=== PATIENT | male | born 1950 | race Caucasian/White ===

== ENCOUNTER → 2020-08-06 10:40 | Outpatient (BNVA) | payer BC, SELFPAY | PROVIDERS: PCP Internal Medicine; Visit Provider Urology | DX: N40.1 Benign prostatic hyperplasia with lower urinary tract symptoms (principal); N13.8 Other obstructive and reflux uropathy; R35.1 Nocturia; R97.20 Elevated prostate specific antigen [PSA] | CPT/HCPCS: 51798 ==

== ENCOUNTER 2020-08-15 10:28 | Outpatient (REF) | payer MEDICARE, SELFPAY ==
[2020-08-15 14:45] LABS: Prostate Specific Antigen 2.22 ng/mL (<0.05-4.0)
== END 2020-08-15 10:29 | disposition home or self-care (01) ==
LOC: HO.WFDLDS 10:28
PROVIDERS: Visit Provider Urology
DX: R97.20 Elevated prostate specific antigen [PSA] (principal); Z12.5 Encounter for screening for malignant neoplasm of prostate
CPT/HCPCS: 84153

== ENCOUNTER 2021-01-29 09:34 | Outpatient (REF) | payer MEDICARE, SELFPAY ==
[2021-01-29 11:54] LABS: PSA,Total (Free>4and<10) 2.18 ng/mL (0.00-4.00)
== END 2021-01-29 09:35 | disposition home or self-care (01) ==
LOC: HO.WFDLDS 09:34
PROVIDERS: Visit Provider Urology
DX: R97.20 Elevated prostate specific antigen [PSA] (principal); N40.1 Benign prostatic hyperplasia with lower urinary tract symptoms; N13.8 Other obstructive and reflux uropathy; Z12.5 Encounter for screening for malignant neoplasm of prostate
CPT/HCPCS: 36415; 84153

== ENCOUNTER → 2021-02-05 11:08 | Outpatient (BNVA) | payer MEDICARE, SELFPAY | PROVIDERS: PCP Internal Medicine; Visit Provider Urology | DX: N40.1 Benign prostatic hyperplasia with lower urinary tract symptoms (principal); N13.8 Other obstructive and reflux uropathy; R35.1 Nocturia; R97.20 Elevated prostate specific antigen [PSA] | CPT/HCPCS: 99212 ==

== ENCOUNTER 2021-05-29 07:51 | Outpatient (REF) | payer MEDICARE, SELFPAY ==
[2021-05-29 11:45] LABS: Basophils Percent Auto 0.5 % (0-2); Eosinophils Absolute Auto 0.3 X10*3/uL (0.0-0.4); Eosinophils Percent Auto 4.8 % (0-4); Hematocrit 44.9 % (42-52); Hemoglobin 14.7 g/dl (14.0-18.0); Imm Gran Abs Auto 0.02 X10*3/uL (0.00-0.03); Imm Gran Pct Auto 0.3 % (0.0-0.4); Lymphocytes Absolute Auto 2.6 X10*3/uL (1.2-4.9); Lymphocytes Percent Auto 43.3 % (20-40); MANUAL DIFF FLAG NO; Mean Corpuscular HGB Conc 32.7 g/dl (31.0-36.0); Mean Corpuscular Hemoglobin 30.4 pg (27.0-33.0); Mean Platelet Volume 10.3 fL (9.4-12.4); Monocytes Absolute Auto 0.5 X10*3/uL (0.1-1.2); Monocytes Percent Auto 7.6 % (2-11); Neutrophils Absolute Auto 2.6 X10*3/uL (2.0-8.3); Neutrophils Percent Auto 43.5 % (45-73); Platelet Count 220 X10*3/uL (160-400); Red Blood Count 4.83 X10*6/uL (4.60-5.80)
[2021-05-29 11:45] LABS: Appearance Urine CLEAR; Color Urine YELLOW; Glucose Urine UA NEG (NEG); Leukocyte Esterase Urine NEG (NEG); Nitrite Urine NEG (NEG); Specific Gravity - Urine 1.025 (1.005-1.025); Urine Blood TRACE (NEG); Urine Ketones NEG (NEG); Urine Protein NEG (NEG-TRACE)
[2021-05-29 11:59] LABS: RBC Urine 0-2 /HPF (0); WBC Urine 0-2 /HPF (0-4)
[2021-05-29 12:05] LABS: Alanine Aminotransferase 14 U/L (0-40); Albumin Level 4.3 g/dL (3.5-5.0); Alkaline Phosphatase 47 U/L (39-117); Anion Gap 9 (12-20); Aspartate Amino Transferase 19 U/L (5-37); Bilirubin Total 0.8 mg/dL (0.0-1.0); Blood Urea Nitrogen 13 mg/dL (9-16); Calcium 9.4 mg/dL (8.4-10.2); Carbon Dioxide 29 mmol/L (22-29); Chloride 105 mmol/L (96-108); Cholesterol 190 mg/dL; Estimated Glomerular Filt Rate > 60; Glucose Fasting 92 mg/dL (60-99); HDL Cholesterol 51 mg/dL; LDL Cholesterol Calculated 125 mg/dl; Potassium 4.3 mmol/L (3.3-5.1); Sodium 139 mmol/L (135-145); Total Protein 6.9 g/dL (6.5-8.0); Triglycerides 70 mg/dL
[2021-05-29 12:18] LABS: Vitamin D 25-OH Total 85.1 ng/mL (>30)
== END 2021-05-29 07:52 | disposition home or self-care (01) ==
LOC: HO.WFDLDS 07:51
PROVIDERS: Visit Provider Internal Medicine
DX: I10 Essential (primary) hypertension (principal); I73.00 Raynaud's syndrome without gangrene; N13.8 Other obstructive and reflux uropathy; N40.1 Benign prostatic hyperplasia with lower urinary tract symptoms; E55.9 Vitamin D deficiency, unspecified
CPT/HCPCS: 36415; 80053; 80061; 81001; 82306; 85025

== ENCOUNTER → 2021-08-12 11:09 | Outpatient (BNVA) | payer MEDICARE, SELFPAY | PROVIDERS: PCP Internal Medicine; Visit Provider Urology | DX: N40.1 Benign prostatic hyperplasia with lower urinary tract symptoms (principal); N13.8 Other obstructive and reflux uropathy; R35.1 Nocturia; R97.20 Elevated prostate specific antigen [PSA] | CPT/HCPCS: 51798; 99212 ==

== ENCOUNTER 2022-06-04 08:57 | Outpatient (REF) | payer MEDICARE, SELFPAY ==
[2022-06-04 11:23] LABS: Hematocrit 44.6 % (42.0-52.0); Hemoglobin 15.1 g/dl (14.0-18.0); Mean Corpuscular HGB Conc 33.9 g/dl (31.0-36.0); Mean Corpuscular Hemoglobin 30.8 pg (27.0-33.0); Mean Corpuscular Volume 90.8 fL (80.0-98.0); Mean Platelet Volume 10.1 fL (9.4-12.4); Platelet Count 231 X10*3/uL (160-400); Red Blood Count 4.91 X10*6/uL (4.60-5.80); Red Cell Distribution Width 12.7 % (11.0-16.0); White Blood Count 5.5 X10*3/uL (4.8-10.8)
[2022-06-04 11:58] LABS: Vitamin D 25-OH Total 80.7 ng/mL (>30)
[2022-06-04 11:59] LABS: Alanine Aminotransferase 24 U/L (0-40); Albumin Level 4.5 g/dL (3.5-5.0); Alkaline Phosphatase 48 U/L (39-117); Anion Gap 14 (12-20); Aspartate Amino Transferase 26 U/L (5-37); Bilirubin Total 0.8 mg/dL (0.0-1.0); Blood Urea Nitrogen 14 mg/dL (9-16); Calcium 9.6 mg/dL (8.4-10.2); Carbon Dioxide 27 mmol/L (22-29); Chloride 104 mmol/L (96-108); Cholesterol 192 mg/dL; Estimated Glomerular Filt Rate > 60; Glucose Fasting 98 mg/dL (60-99); HDL Cholesterol 51 mg/dL; LDL Cholesterol Calculated 123 mg/dl; Potassium 4.6 mmol/L (3.3-5.1); Sodium 140 mmol/L (135-145); Total Protein 7.4 g/dL (6.5-8.0); Triglycerides 90 mg/dL
[2022-06-04 12:30] LABS: Folate 11.5 ng/mL (> or = 4.0); Vitamin B12 638 pg/mL (200-900)
== END 2022-06-04 08:58 | disposition home or self-care (01) ==
LOC: HO.WFDLDS 08:57
PROVIDERS: Visit Provider Internal Medicine
DX: I10 Essential (primary) hypertension (principal); N13.8 Other obstructive and reflux uropathy; N40.1 Benign prostatic hyperplasia with lower urinary tract symptoms; E55.9 Vitamin D deficiency, unspecified
CPT/HCPCS: 36415; 80053; 80061; 82306; 82607; 82746; 85027

== ENCOUNTER 2022-07-31 10:21 | Outpatient (REF) | payer MEDICARE, SELFPAY ==
[2022-07-31 14:22] LABS: Prostate Specific Antigen 1.89 ng/mL (<0.05-4.0)
== END 2022-07-31 10:22 | disposition home or self-care (01) ==
LOC: HO.WFDLDS 10:21
PROVIDERS: Visit Provider Urology
DX: Z12.5 Encounter for screening for malignant neoplasm of prostate (principal); N13.8 Other obstructive and reflux uropathy; N40.1 Benign prostatic hyperplasia with lower urinary tract symptoms
CPT/HCPCS: 36415; 84153

== ENCOUNTER 2022-08-12 11:28 | Outpatient (REF) | payer MEDICARE, SELFPAY ==
[2022-08-12 16:45] LABS: Urine Cytology See Pathology rpt
== END 2022-08-12 11:29 | disposition home or self-care (01) ==
LOC: HO.LAB 11:28
PROVIDERS: PCP Internal Medicine; Visit Provider Urology
DX: R31.29 Other microscopic hematuria (principal); N40.1 Benign prostatic hyperplasia with lower urinary tract symptoms; N13.8 Other obstructive and reflux uropathy
CPT/HCPCS: 51798; 88112; 99212

== ENCOUNTER 2023-06-10 11:29 | Outpatient (AMB) | payer MEDICARE, SELFPAY ==
--- NOTE | 2023-06-10 11:43 | MHC.PC.OV ---
Vital Signs 06/10/23 11:47 Height 5 ft 10 in Weight 196 lb BMI 28.1 BP 124/74 Blood Pressure Location Lt brachial Position Sitting Pulse 60 Pulse Source Pulse Oximeter Pulse Oximetry (%) 99 Oxygen Delivery Method Room Air Intake Visit Reasons: PE/HTN Intake Note: Pt is here today for PE. Allergies bee pollen [BEE STINGS] Allergy (Intermediate, Verified 06/10/23 11:49) LIP/MOUTH TINGLING nifedipine [NIFEDIPINE] Allergy (Intermediate, Verified 06/10/23 11:49) FLUSHING-FULL BODY, immediate red ears and hands, swelling hornet venom Allergy (Unknown, Verified 06/10/23 11:49) slight lips and tounge reaction Medication List - Last Reconciled 06/10/23 by Genesis Hunt MD ascorbate calcium (vitamin C) PO aspirin 81 mg PO DAILY cholecalciferol (vitamin D3) (Vitamin D3) 2,000 units PO DAILY epinephrine (EpiPen 2-Jaycob) 0.3 mg (0.3 mL) IM Q4H PRN finasteride 5 mg PO DAILY 90 days lactobacillus combination no.8 (Adult Probiotic) PO lisinopril 10 mg PO DAILY metoprolol tartrate 25 mg PO BID omeprazole 20 mg PO DAILY vitamin B complex (B Complex-Vitamin B12 tablet) 1 tab PO DAILY Tobacco use date assessed: 06/10/23 Fall risk assessment: No Falls in past year Last assessed Fall Risk: 06/10/23 Dental Screening Dental Screen Date: 06/10/23 Did you have a dental visit in the last 12 months?: Yes Did you have a dental problem in the last 6 months where you did not have access to dental care?: No Was dental information given to patient?: Patient has dentist HPI PE/HTN HPI Details Pt presents for PE. PFSH Medical History Benign prostatic hyperplasia with lower urinary tract symptoms Vitamin D deficiency Squamous cell carcinoma of skin of [place] region Sjogren's syndrome Blue toe syndrome Mixed connective tissue disease Raynaud disease Lyme disease Microscopic hematuria HTN (hypertension) Surgical History History of esophagogastroduodenoscopy (EGD) H/O colonoscopy No pertinent past surgical history Family History Father HTN (hypertension) Mother HTN (hypertension) Colon cancer Sister Non-Hodgkin lymphoma Social History Housing: House Alcohol intake: current Alcohol intake frequency: a few times a week Patient Tobacco Use Status: Never used Tobacco e-Cigarette/Vaping Use: Never Used Current occupational status: retired Cognitive needs: No Hearing needs: No Vision needs: Yes Questionnaire PHQ-9 Over the last 2 weeks, how often have you been bothered by any of the following problems? 1. Little interest or pleasure in doing things: not at all 2. Feeling down, depressed, or hopeless: not at all 3. Trouble falling or staying asleep, or sleeping too much: not at all 4. Feeling tired or having little energy: not at all 5. Poor appetite or overeating: not at all 6. Feeling bad about yourself - or that you are a failure or have let yourself or your family down: not at all 7. Trouble concentrating on things, such as reading the newspaper or watching television: not at all 8. Moving or speaking so slowly that other people could have noticed. Or the opposite - being so fidgety or restless that you have been moving around a lot more than usual: not at all 9. Thoughts that you would be better off or of hurting yourself in some way: not at all Total score: 0 Depression Screening Interpretation: Negative Source: Developed by Drs. Nhan Acharya, Susy Smith, Fer Rosario and colleagues, with an educational kevin from [employer]. Thrive Questionnaire Date Thrive assessed: 06/10/23 I am a: Patient What is your living situation today?: I have a steady place to live Within the past 12 months, did the food you bought not last and you didn't have the money to get more?: Never true Within the past 12 months, did you worry whether your food would run out before you got money to buy more?: Never true Do you have trouble paying for medicines?: No Do you have trouble getting transportation to medical appointments?: No Do you have trouble paying your heating and electricity bill?: No Do you have trouble taking care of your child, family member or friend?: No Do you have trouble with day-to-day activities such as bathing, preparing meals, shopping, managing finances, etc.?: No Are you currently unemployed and looking for a job?: No Are you interested in more education?: No Please select the resources that you would like help with: None Currently or been in a relationship where the following occur: no concerns reported AUDIT C Alcohol Use Questionnaire (AUDIT-C) 1. How often do you have a drink containing alcohol?: 2-3 times a week 2. How many drinks containing alcohol do you have on a typical day when you are drinking?: 1 or 2 3. How often do you have six or more drinks on one occasion?: Never Total Score: 3 HEATH-7 AMB Questionnaire HEATH-7 Date EHATH - 7 assessed: 06/10/23 Feeling nervous, anxious, or on edge: 0 = Not at all Not being able to stop or control worryin = Not at all Worrying too much about different things: 0 = Not at all Trouble relaxin = Not at all Being so restless that it is hard to sit still: 0 = Not at all Becoming easily annoyed or irritable: 0 = Not at all Feeling afraid as if something awful might happen: 0 = Not at all Total HEATH-7 score (0-4 normal; 5-9 mild; 10-14 moderate; 15-21 severe): 0 Source: Developed by Drs. Nhan Acharya, Susy Smith, Fer Rosario and colleagues, with an educational kevin from [employer]. Review of Systems Const All systems reviewed & are unremarkable except as noted in HPI and below Reports no additional complaints Eyes Reports no additional complaints ENT Reports no additional complaints Card Reports no additional complaints Resp Reports no additional complaints GI Reports no additional complaints Reports no additional complaints Musc Reports no additional complaints Skin/Breast Reports system reviewed and no additional complaints, except as documented Physical exam (Primary Care) Vital Signs: Last Vital Signs Pulse 60 06/10/23 11:47 BP 124/74 06/10/23 11:47 Pulse Ox 99 06/10/23 11:47 Oxygen Delivery Method Room Air 06/10/23 11:47 BMI result Body Mass Index 28.1 Tobacco/Smoking Status: Tobacco use Status Tobacco use date assessed 06/10/23 06/10/23 11:53 Patient Tobacco Use Status Never used Tobacco 06/10/23 11:53 e-Cigarette/Vaping Use Never Used 06/10/23 11:43 PHQ-9: PHQ-9 Score PHQ-9: Total score 0 06/10/23 11:54 Depression Screening Interpretation: Negative Thrive Assessment: Date of Thrive Assessment Date Thrive assessed 06/10/23 06/10/23 11:54 Currently or been in a relationship where the following occur: no concerns reported Const General: no acute distress HENMT Head: Yes normal to inspection Ears: hearing grossly normal bilaterally General nose exam: Normal external nose present Face and sinus: Yes normal facial exam Mouth: Normal oral and palatal mucosa present Throat: Yes posterior oropharynx normal Neck Neck: Yes no lymphadenopathy and Yes supple Resp Effort & Inspection: normal respiratory effort Auscultation: clear to auscultation bilaterally Cardio Rhythm: regular rhythm Heart sounds: S1 normal heart sound present and S2 normal heart sound present GI Inspection: Yes normal to inspection Palpation (GI): Soft to palpation Percussion: Yes normal to percussion Auscultation: normal bowel sounds Assessment and Plan Assessment & Plan (1) HTN (hypertension): Code(s): I10 - Essential (primary) hypertension Plan: Continue current medications (2) GERD (gastroesophageal reflux disease): Code(s): K21.9 - Gastro-esophageal reflux disease without esophagitis Plan: Continue omeprazole (3) BPH w urinary obs/LUTS: Code(s): N40.1 - Benign prostatic hyperplasia with lower urinary tract symptoms; N13.8 - Other obstructive and reflux uropathy Plan: Continue finasteride follow-up with urology next month (4) Annual physical exam: Code(s): Z00.00 - Encounter for general adult medical examination without abnormal findings Plan: Well-balanced diet and regular physical activity discussed with the patient. Orders: Orders Lipid Panel Today I10 - Essential (primary) hypertension, K21.9 - Gastro-esophageal reflux disease without esophagitis, N13.8 - Other obstructive and reflux uropathy, N40.1 - Benign prostatic hyperplasia with lower urinary tract symptoms, Z00.00 - Encounter for general adult medical examination without abnormal findings UA w Microscopic Today I10 - Essential (primary) hypertension, K21.9 - Gastro-esophageal reflux disease without esophagitis, N13.8 - Other obstructive and reflux uropathy, N40.1 - Benign prostatic hyperplasia with lower urinary tract symptoms, Z00.00 - Encounter for general adult medical examination without abnormal findings Complete Blood Count Auto Diff 365 Days E55.9 - Vitamin D deficiency, unspecified, I10 - Essential (primary) hypertension, R97.20 - Elevated prostate specific antigen [PSA], Z00.00 - Encounter for general adult medical examination without abnormal findings Lipid Panel 365 Days E55.9 - Vitamin D deficiency, unspecified, I10 - Essential (primary) hypertension, R97.20 - Elevated prostate specific antigen [PSA], Z00.00 - Encounter for general adult medical examination without abnormal findings Comprehensive [place]. Panel Fast Today I10 - Essential (primary) hypertension, K21.9 - Gastro-esophageal reflux disease without esophagitis, N13.8 - Other obstructive and reflux uropathy, N40.1 - Benign prostatic hyperplasia with lower urinary tract symptoms, Z00.00 - Encounter for general adult medical examination without abnormal findings Complete Blood Count Auto Diff Today I10 - Essential (primary) hypertension, K21.9 - Gastro-esophageal reflux disease without esophagitis, N13.8 - Other obstructive and reflux uropathy, N40.1 - Benign prostatic hyperplasia with lower urinary tract symptoms, Z00.00 - Encounter for general adult medical examination without abnormal findings PSA,Total (Free>4and<10) Today I10 - Essential (primary) hypertension, K21.9 - Gastro-esophageal reflux disease without esophagitis, N13.8 - Other obstructive and reflux uropathy, N40.1 - Benign prostatic hyperplasia with lower urinary tract symptoms, Z00.00 - Encounter for general adult medical examination without abnormal findings Comprehensive [place]. Panel Fast 365 Days E55.9 - Vitamin D deficiency, unspecified, I10 - Essential (primary) hypertension, R97.20 - Elevated prostate specific antigen [PSA], Z00.00 - Encounter for general adult medical examination without abnormal findings Coding Level of Care Code Est Pt Prev Care >65y(92156) Diagnoses HTN (hypertension) I10 GERD (gastroesophageal reflux disease) K21.9 BPH w urinary obs/LUTS N40.1; N13.8 Annual physical exam Z00.00
[2023-06-10 11:47] VITALS: BP 124/74; PULSE 60; O2SAT 99; BMI 28.1
== END 2023-06-10 12:36 | disposition home or self-care (01) ==
PROVIDERS: Visit Provider Internal Medicine
DX: Z00.00 Encounter for general adult medical examination without abnormal findings (principal); I10 Essential (primary) hypertension; K21.9 Gastro-esophageal reflux disease without esophagitis; N40.1 Benign prostatic hyperplasia with lower urinary tract symptoms; N13.8 Other obstructive and reflux uropathy
CPT/HCPCS: 99397

== ENCOUNTER 2023-08-03 08:34 | Outpatient (REF) | payer MEDICARE, SELFPAY ==
[2023-08-03 11:13] LABS: MANUAL DIFF FLAG NO
[2023-08-03 11:18] LABS: Basophils Percent Auto 0.6 % (0-2); Eosinophils Absolute Auto 0.3 X10*3/uL (0.0-0.4); Eosinophils Percent Auto 5.2 % (0-4); Hematocrit 45.2 % (42.0-52.0); Imm Gran Abs Auto 0.01 X10*3/uL (0.00-0.03); Imm Gran Pct Auto 0.2 % (0.0-0.4); Lymphocytes Absolute Auto 2.4 X10*3/uL (1.2-4.9); Mean Corpuscular HGB Conc 33.2 g/dl (31.0-36.0); Mean Corpuscular Hemoglobin 30.9 pg (27.0-33.0); Mean Corpuscular Volume 93.2 fL (80.0-98.0); Mean Platelet Volume 10.5 fL (9.4-12.4); Monocytes Absolute Auto 0.4 X10*3/uL (0.1-1.2); Platelet Count 204 X10*3/uL (160-400); Red Blood Count 4.85 X10*6/uL (4.60-5.80); Red Cell Distribution Width 12.1 % (11.0-16.0)
[2023-08-03 11:32] LABS: Appearance Urine Clear; Color Urine Yellow; Glucose Urine UA Negative (Negative); Leukocyte Esterase Urine Negative (Negative); Nitrite Urine Negative (Negative); PH 5.5 (5.0-9.0); UMIC TRIGGER UA YES; Urine Blood Trace (Negative); Urine Ketones Negative (Negative); Urine Protein Negative (Neg-Trace)
[2023-08-03 11:35] LABS: Bacteria Urine None Seen (None Seen); Hyaline Casts Urine 0-2 /LPF (0-2); RBC Urine 0-2 /HPF (0-2); Squamous Epithelial Cell Urine 0-2 /HPF (0-2); WBC Urine 0-5 /HPF (0-5)
[2023-08-03 11:40] LABS: Alanine Aminotransferase 20 U/L (0-40); Albumin Level 4.3 g/dL (3.5-5.0); Alkaline Phosphatase 43 U/L (39-117); Anion Gap 9 (12-20); Aspartate Amino Transferase 23 U/L (5-37); Bilirubin Total 0.7 mg/dL (0.0-1.0); Blood Urea Nitrogen 14 mg/dL (9-16); Calcium 9.7 mg/dL (8.4-10.2); Carbon Dioxide 30 mmol/L (22-29); Chloride 106 mmol/L (96-108); Cholesterol 186 mg/dL (<200); Estimated Glomerular Filt Rate > 60; Glucose Fasting 97 mg/dL (60-99); HDL Cholesterol 50 mg/dL (>40); LDL Cholesterol Calculated 120 mg/dL (<100); Potassium 4.5 mmol/L (3.3-5.1); Sodium 140 mmol/L (135-145); Total Protein 7.4 g/dL (6.5-8.0); Triglycerides 81 mg/dL (<150)
[2023-08-03 11:49] LABS: PSA,Total (Free>4and<10) 1.92 ng/mL (0.00-4.00)
== END 2023-08-03 08:35 | disposition home or self-care (01) ==
LOC: HO.WFDLDS 08:34
PROVIDERS: Urology; Visit Provider Internal Medicine
DX: Z00.00 Encounter for general adult medical examination without abnormal findings (principal); K21.9 Gastro-esophageal reflux disease without esophagitis; N40.1 Benign prostatic hyperplasia with lower urinary tract symptoms; N13.8 Other obstructive and reflux uropathy; I10 Essential (primary) hypertension; Z12.5 Encounter for screening for malignant neoplasm of prostate
CPT/HCPCS: 36415; 80053; 80061; 81001; 84153; 85025

== ENCOUNTER 2023-08-10 11:29 | Outpatient (AMB) | payer MEDICARE, SELFPAY ==
--- NOTE | 2023-08-10 11:37 | MHC.OFFVIS ---
Intake Intake Visit Reasons: 1Y PSA(set) Intake Note: Patient is Present for Follow Up PSA Urology Medication: Finasteride, Antibiotic Allergies: None Blood Thinners: Aspirin PVR: 0 Allergies bee pollen [BEE STINGS] Allergy (Intermediate, Verified 08/10/23 11:40) LIP/MOUTH TINGLING nifedipine [NIFEDIPINE] Allergy (Intermediate, Verified 08/10/23 11:40) FLUSHING-FULL BODY, immediate red ears and hands, swelling hornet venom Allergy (Unknown, Verified 08/10/23 11:40) slight lips and tounge reaction Medication List - Last Reconciled 08/10/23 by Floyd Duncan MD ascorbate calcium (vitamin C) PO aspirin 81 mg PO DAILY cholecalciferol (vitamin D3) (Vitamin D3) 2,000 units PO DAILY epinephrine (EpiPen 2-Jaycob) 0.3 mg (0.3 mL) IM Q4H PRN finasteride 5 mg PO DAILY 90 days lactobacillus combination no.8 (Adult Probiotic) PO lisinopril 10 mg PO DAILY metoprolol tartrate 25 mg PO BID omeprazole 20 mg PO DAILY vitamin B complex (B Complex-Vitamin B12 tablet) 1 tab PO DAILY HPI HPI Comments History of Present Illness Details Xavi is a pleasant male. He is a patient of Dr. Hunt. He is seen for the following urologic issues - lower urinary tract symptoms Continue stable urinary performance with finasteride Taking finasteride 5 times a week Discussed his diagnosis of Raynaud's Does notice nocturia years reduced when takes ibuprofen Previous discussion regarding prostate procedures such as GreenLight laser and UroLift Lower Urinary Tract Symptoms: Continuing with use of finasteride Current visit is for further symptom evaluation of, lower urinary tract symptoms, predominate obstructive symptoms. Current treatment includes observation. Prostate Symptom Score Moderate (9-19), Bother 3. Symptoms include incomplete emptying, weak stream, nocturia (>2), and are progressing. PSA - 01/31 2.2, 08/04 1.9, 08/05 1.9 Prior Prostate Score unknown. Testing at next visit will include bladder scan [facility] Medical History Benign prostatic hyperplasia with lower urinary tract symptoms Vitamin D deficiency Squamous cell carcinoma of skin of [place] region Sjogren's syndrome Blue toe syndrome Mixed connective tissue disease Raynaud disease Lyme disease Microscopic hematuria HTN (hypertension) Surgical History History of esophagogastroduodenoscopy (EGD) H/O colonoscopy No pertinent past surgical history Family History Father HTN (hypertension) Mother HTN (hypertension) Colon cancer Sister Non-Hodgkin lymphoma Housing: House Alcohol intake: current Alcohol intake frequency: a few times a week Patient Tobacco Use Status: Never used Tobacco e-Cigarette/Vaping Use: Never Used Current occupational status: retired Cognitive needs: No Hearing needs: No Vision needs: Yes Review of Systems Const Denies chills and Denies fever(s) Card Reports no additional complaints and Denies syncope Resp Denies cough GI Denies abdominal pain and Denies heartburn Reports as per HPI and Denies change in libido Neuro Denies syncope Psych Denies change in libido Endo Denies change in libido Physical Exam Const General: cooperative, healthy appearing, comfortable and no acute distress Orientation/consciousness: patient oriented x3 HEENT Face and sinus: Yes normal facial exam Mouth: moist mucous membranes Neck Neck: Yes normal visual inspection, Yes full ROM and Yes trachea midline Chest Chest palpation & inspection: normal inspection of the chest Resp Effort & Inspection: normal respiratory effort, able to speak in complete sentences and no respiratory distress GI Inspection: Yes normal to inspection Back/Spine/Pelvis Cervical Spine: normal cervical lordosis Thoracic/Lumbar Spine: thoracic and lumbar spine normal to inspection Skin General skin exam: no rashes or lesions noted Neuro General: patient oriented x3, gait normal, tone normal and moves all extremities Extrem General: Yes normal to inspection and Yes capillary refill normal Office Procedures Post Void Residual Post Residual Void Post Void Residual (PVR): 0 97621-[id number] Void Residual by ultrasound Results AMB Urinalysis, Automated UA Leukoctes 0 Sergey/uL Last Edit by GENNA Wheat on 08/10/23 11:45 UA Nitrite Negative Last Edit by GENNA Wheat on 08/10/23 11:45 UA Urobilinogen 0.2 mg/dL Last Edit by GENNA Wheat on 08/10/23 11:45 UA Protein 0 mg/dL Last Edit by Princess Anderson, RMA on 08/10/23 11:45 UA pH 5.5 Last Edit by Princess Anderson, RMA on 08/10/23 11:45 UA Blood 10 Vitaliy/uL Last Edit by Princess Anderson, RMA on 08/10/23 11:45 UA Specific [place] 1.015 Last Edit by Princess Anderson, KOSTASA on 08/10/23 11:45 UA Ketone Negative Last Edit by Princess Anderson, RMA on 08/10/23 11:45 UA Bilirubin 0 mg/dL Last Edit by Princess Anderson, KOSTASA on 08/10/23 11:45 UA Glucose 0 mg/dL Last Edit by Princess Anderson, RMA on 08/10/23 11:45 Assessment & Plan Assessment & Plan (1) Elevated PSA: Comment: f/u with urology Code(s): R97.20 - Elevated prostate specific antigen [PSA] (2) BPH w urinary obs/LUTS: Code(s): N40.1 - Benign prostatic hyperplasia with lower urinary tract symptoms; N13.8 - Other obstructive and reflux uropathy Plan Twelve month follow-up PSA Orders: Orders Prostate Specific Antigen 364 Days N13.8 - Other obstructive and reflux uropathy, N40.1 - Benign prostatic hyperplasia with lower urinary tract symptoms AMB Post Void Residual by ultrasound Today N13.8 - Other obstructive and reflux uropathy, N40.1 - Benign prostatic hyperplasia with lower urinary tract symptoms AMB Urinalysis Automated Today Z13.9 - Encounter for screening, unspecified Patient Instructions: Imaging studies, laboratory and physical exam results were discussed and reviewed in detail. No major barriers to patient understanding were identified. An opportunity to ask questions regarding the treatment plan was provided. All questions were answered. The patient expressed understanding and agreement with the above treatment plan. The patient is aware they should contact our office by phone for worsening of their current condition or the appearance of new urologic symptoms. Compliance is encouraged with any medications and followup testing that is ordered. It is a privilege to participate in the urologic care of your patient. If you have any questions or concerns regarding treatment for the above conditions, or other urologic issues, please do not hesitate to contact me. The office telephone contact is [phone]. This note is constructed using voice recognition software. While every effort has been made to ensure accuracy slubber runner errors may have been included. Yours sincerely, Dr Floyd Duncan MD, [facility] - Urology Providers of Expert, Compassionate Care for the Genitourinary System Coding Level of Care Code Est Pt Level 4 (79762) Diagnoses Elevated PSA R97.20 BPH w urinary obs/LUTS N40.1; N13.8 CPT Codes Post Residual Void - PVR CPT Code: 07121-Ncnf Void Residual by ultrasound ([id number])
== END 2023-08-10 12:00 | disposition home or self-care (01) ==
PROVIDERS: Visit Provider Urology
DX: R97.20 Elevated prostate specific antigen [PSA] (principal); N40.1 Benign prostatic hyperplasia with lower urinary tract symptoms; N13.8 Other obstructive and reflux uropathy; Z13.9 Encounter for screening, unspecified
CPT/HCPCS: 99213

== ENCOUNTER → 2023-08-10 11:29 | Outpatient (BNVA) | payer MEDICARE, SELFPAY | PROVIDERS: Visit Provider Urology | DX: N40.1 Benign prostatic hyperplasia with lower urinary tract symptoms (principal); N13.8 Other obstructive and reflux uropathy; R97.20 Elevated prostate specific antigen [PSA] | CPT/HCPCS: 51798; 81003; 99212 ==

== ENCOUNTER → 2024-01-03 11:36 | Outpatient (AMB) | payer MEDICARE, SELFPAY ==
--- NOTE | 2024-01-03 12:01 | MHC.OFFWIV ---
Intake Vital Signs 01/03/24 12:04 Height 5 ft 10 in Weight 204 lb BMI 29.3 BP 124/80 Blood Pressure Location Lt brachial Position Sitting Respiration 16 Pulse 58 Pulse Source Pulse Oximeter Temp 97.7 F Temp Source Oral Pulse Oximetry (%) 98 Oxygen Delivery Method Room Air Intake Visit Reasons: Lump in groin Intake Note: Lump in groin. Noticed lump a couple months ago, increasing in size the past week. 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 Allergies bee pollen [BEE STINGS] Allergy (Intermediate, Verified 01/03/24 12:17) LIP/MOUTH TINGLING nifedipine [NIFEDIPINE] Allergy (Intermediate, Verified 01/03/24 12:17) FLUSHING-FULL BODY, immediate red ears and hands, swelling hornet venom Allergy (Unknown, Verified 01/03/24 12:17) slight lips and tounge reaction Medication List - Last Reconciled 01/03/24 by BRITTNI Luna- ascorbate calcium (vitamin C) PO aspirin 81 mg PO DAILY cholecalciferol (vitamin D3) (Vitamin D3) 2,000 units PO DAILY epinephrine (EpiPen 2-Jaycob) 0.3 mg (0.3 mL) IM Q4H PRN finasteride 5 mg PO DAILY 90 days lactobacillus combination no.8 (Adult Probiotic) PO lisinopril 10 mg PO DAILY metoprolol tartrate 25 mg PO BID omeprazole 20 mg PO DAILY vitamin B complex (B Complex-Vitamin B12 tablet) 1 tab PO DAILY Do you need a note to return to daycare/school/sports/work: No HPI HPI Comments History of Present Illness Details Here today for a lump of scrotum, left side noticed while in the shower washing himself reports it was about the size of a grain of rice did see pcp for this - reassured has not paid any attention to this until last week while in [place], noticed a larger lump - unsure if this is the same place or not. The area is not painful After showering, it does become itchy. Denies constitutional symptoms [facility] Medical History Benign prostatic hyperplasia with lower urinary tract symptoms Vitamin D deficiency Squamous cell carcinoma of skin of religion region Sjogren's syndrome Blue toe syndrome Mixed connective tissue disease Raynaud disease Lyme disease Microscopic hematuria HTN (hypertension) Surgical History History of esophagogastroduodenoscopy (EGD) H/O colonoscopy No pertinent past surgical history Family History Father HTN (hypertension) Mother HTN (hypertension) Colon cancer Sister Non-Hodgkin lymphoma Social History Housing: House Alcohol intake: current Alcohol intake frequency: a few times a week Patient Tobacco Use Status: Never used Tobacco e-Cigarette/Vaping Use: Never Used Current occupational status: retired Cognitive needs: No Hearing needs: No Vision needs: Yes Review of Systems Const All systems reviewed & are unremarkable except as noted in HPI and below Physical Exam Vital Signs: Last Vital Signs Temp 97.7 F 01/03/24 12:04 Pulse 58 01/03/24 12:04 Resp 16 01/03/24 12:04 BP 124/80 01/03/24 12:04 Pulse Ox 98 01/03/24 12:04 Oxygen Delivery Method Room Air 01/03/24 12:04 BMI result Body Mass Index 29.3 Male genitals images: 1. 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 Testicles WNL. Overlying skin intact. Assessment & Plan Assessment & Plan (1) Scrotal mass: Comment: check US and f/u with results once available Code(s): N50.89 - Other specified disorders of the male genital organs Plan: . Plan . Orders: Orders US scrotum Today N50.89 - Other specified disorders of the male genital organs Coding Level of Care Code Est Pt Level 4 (74661) Diagnoses Scrotal mass N50.89
[2024-01-03 12:04] VITALS: BP 124/80; PULSE 58; RESP 16; TEMP 36.5; O2SAT 98; BMI 29.3
== END ==
PROVIDERS: PCP Internal Medicine; Visit Provider Nurse Practitioner Family
DX: N50.89 Other specified disorders of the male genital organs (principal)
CPT/HCPCS: 99214

== ENCOUNTER 2024-01-06 10:29 | Outpatient (REF) | payer MEDICARE, SELFPAY ==
--- NOTE | ~2024-01-06 | US_ITS ---
EXAMINATION: US SCROTUM CLINICAL INFORMATION: Left scrotal mass. COMPARISON: None available. TECHNIQUE: A sonogram of the scrotum was performed assessing menjivar-scale appearance and color Doppler flow. Spectral Doppler analysis of the arterial and venous flow were performed in the testes bilaterally. FINDINGS: RIGHT: Right testicle measures 4.5 x 1.9 x 3.6 cm, volume 15.6 mL. No focal testicular parenchymal lesions are visualized. Spectral Doppler analysis of the arterial and venous flow is normal in the right testis. Right epididymal head is normal in size. There is no right hydrocele. A small right varicocele is seen. Right epididymal Doppler flow is normal. LEFT: Left testicle measures 4.4 x 2.3 x 3.9 cm, volume 20.9 mL. No focal testicular parenchymal lesions are visualized. There is ectasia of the right rete testis. Spectral Doppler analysis of the arterial and venous flow is normal in the left testis. Left epididymal head is normal in size. An 8 mm left epidural head cyst versus spermatocele seen. There are additional 7 mm and 5 mm left epididymal tail cyst. There is a small left hydrocele. No varicocele is seen. Left epididymal Doppler flow is normal. US/US scrotum IMPRESSION: 1. A small left hydrocele is seen. 2. There are small left epididymal spermatocele/cysts, as detailed. 3. A right varicocele is seen. 4. No testicular mass or torsion is seen.
== END 2024-01-06 10:30 | disposition home or self-care (01) ==
LOC: HO.HMGCX 10:29
PROVIDERS: PCP Internal Medicine; Visit Provider Nurse Practitioner Family
DX: N50.89 Other specified disorders of the male genital organs (principal)
CPT/HCPCS: 76870

== ENCOUNTER 2024-04-11 11:56 | Outpatient (REF) | payer MEDICARE, SELFPAY ==
[2024-04-11 18:36] LABS: Prostate Specific Antigen 1.56 ng/mL (<0.05-4.0)
== END 2024-04-11 11:57 | disposition home or self-care (01) ==
LOC: HO.WFDLDS 11:56
PROVIDERS: Visit Provider Urology
DX: N40.1 Benign prostatic hyperplasia with lower urinary tract symptoms (principal); N13.8 Other obstructive and reflux uropathy; Z12.5 Encounter for screening for malignant neoplasm of prostate
CPT/HCPCS: 36415; 84153

== ENCOUNTER 2024-04-13 10:50 | Outpatient (AMB) | payer MEDICARE, SELFPAY ==
--- NOTE | 2024-04-13 11:03 | A.OFFVIS_ITS ---
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 He is a patient of Dr. Hunt. He is seen for the following urologic issues - lower urinary tract symptoms Continue stable urinary performance with finasteride Taking finasteride 5 times a week Discussed his diagnosis of Raynaud's Does notice nocturia years reduced when takes ibuprofen Previous discussion regarding prostate procedures such as GreenLight laser and UroLift Lower Urinary Tract Symptoms: Continuing with use of finasteride Current visit is for further symptom evaluation of, lower urinary tract symptoms, predominate obstructive symptoms. Current treatment includes observation. Prostate Symptom Score Moderate (9-19), Bother 3. Symptoms include incomplete emptying, weak stream, nocturia (>2), and are progressing. PSA - 01/31 2.2, 08/04 1.9, 08/05 1.9 Prior Prostate Score unknown. Testing at next visit will include bladder scan [facility] Medical History (Updated 06/13/24 @ 12:46 by Genesis Hunt MD) Benign prostatic hyperplasia with lower urinary tract symptoms Vitamin D deficiency Squamous cell carcinoma of skin of [place] region Sjogren's syndrome Blue toe syndrome Mixed connective tissue disease Raynaud disease Lyme disease Microscopic hematuria HTN (hypertension) Surgical History (Updated 06/13/24 @ 12:46 by Genesis Hunt MD) History of esophagogastroduodenoscopy (EGD) H/O colonoscopy No pertinent past surgical history Family History Father HTN (hypertension) Mother HTN (hypertension) Colon cancer Sister Non-Hodgkin lymphoma Social History Housing: House Alcohol intake: current Alcohol intake frequency: a few times a week Patient Tobacco Use Status: Never used Tobacco e-Cigarette/Vaping Use: Never Used Current occupational status: retired Cognitive needs: No Hearing needs: No Vision needs: Yes Review of Systems Const Denies chills and Denies fever(s) Card Reports no additional complaints and Denies syncope Resp Denies cough GI Denies abdominal pain and Denies heartburn Reports as per HPI and Denies change in libido Neuro Denies syncope Psych Denies change in libido Endo Denies change in libido Physical Exam Const General: cooperative, healthy appearing, comfortable and no acute distress Orientation/consciousness: patient oriented x3 HEENT Face and sinus: Yes normal facial exam Mouth: moist mucous membranes Neck Neck: Yes normal visual inspection, Yes full ROM and Yes trachea midline Chest Chest palpation & inspection: normal inspection of the chest Resp Effort & Inspection: normal respiratory effort, able to speak in complete sentences and no respiratory distress GI Inspection: Yes normal to inspection Back/Spine/Pelvis Cervical Spine: normal cervical lordosis Thoracic/Lumbar Spine: thoracic and lumbar spine normal to inspection Skin General skin exam: no rashes or lesions noted Neuro General: patient oriented x3, gait normal, tone normal and moves all extremities Extrem General: Yes normal to inspection and Yes capillary refill normal Assessment & Plan Assessment & Plan (1) BPH w urinary obs/LUTS: Code(s): N40.1 - Benign prostatic hyperplasia with lower urinary tract symptoms; N13.8 - Other obstructive and reflux uropathy Category: Medical (2) Elevated PSA: Comment: f/u with urology Code(s): R97.20 - Elevated prostate specific antigen [PSA] Category: Medical Plan Six-month follow-up PSA tele Orders: Orders Prostate Specific Antigen 6 Months R97.20 - Elevated prostate specific antigen [PSA] Patient Instructions: Imaging studies, laboratory and physical exam results were discussed and review ed in detail. No major barriers to patient understanding were identified. An opportunity to ask questions regarding the treatment plan was provided. All questions were answered. The patient expressed understanding and agreement with the above treatment plan. The patient is aware they should contact our office by phone for worsening of their current condition or the appearance of new urologic symptoms. Compliance is encouraged with any medications and followup testing that is ordered. It is a privilege to participate in the urologic care of your patient. If you have any questions or concerns regarding treatment for the above conditions, or other urologic issues, please do not hesitate to contact me. The office telephone contact is [phone]. This note is constructed using voice recognition software. While every effort has been made to ensure accuracy nurse staff errors may have been included. Yours sincerely, Dr Floyd Duncan MD, [facility] - Urology Providers of Expert, Compassionate Care for the Genitourinary System Coding Level of Care Code Est Pt Level 3 (21560) Diagnoses BPH w urinary obs/LUTS N40.1; N13.8 Elevated PSA R97.20
== END 2024-04-13 12:10 | disposition home or self-care (01) ==
PROVIDERS: PCP Internal Medicine; Visit Provider Urology
DX: N40.1 Benign prostatic hyperplasia with lower urinary tract symptoms (principal); N13.8 Other obstructive and reflux uropathy; R97.20 Elevated prostate specific antigen [PSA]
CPT/HCPCS: 99213

== ENCOUNTER → 2024-04-13 10:50 | Outpatient (BNVA) | payer MEDICARE, SELFPAY | PROVIDERS: PCP Internal Medicine; Visit Provider Urology | DX: N40.1 Benign prostatic hyperplasia with lower urinary tract symptoms (principal); N13.8 Other obstructive and reflux uropathy; R97.20 Elevated prostate specific antigen [PSA] | CPT/HCPCS: 99212 ==

== ENCOUNTER 2024-06-09 07:30 | Outpatient (REF) | payer MEDICARE, SELFPAY ==
[2024-06-09 11:11] LABS: MANUAL DIFF FLAG NO
[2024-06-09 11:17] LABS: Basophils Percent Auto 0.6 % (0-2); Eosinophils Absolute Auto 0.3 X10*3/uL (0.0-0.4); Eosinophils Percent Auto 4.6 % (0-4); Hematocrit 43.9 % (42.0-52.0); Hemoglobin 14.7 g/dl (14.0-18.0); Imm Gran Abs Auto 0.01 X10*3/uL (0.00-0.03); Imm Gran Pct Auto 0.2 % (0.0-0.4); Lymphocytes Absolute Auto 2.5 X10*3/uL (1.2-4.9); Lymphocytes Percent Auto 46.9 % (20-40); Mean Corpuscular HGB Conc 33.5 g/dl (31.0-36.0); Mean Corpuscular Volume 92.6 fL (80.0-98.0); Mean Platelet Volume 10.2 fL (9.4-12.4); Monocytes Absolute Auto 0.5 X10*3/uL (0.1-1.2); Monocytes Percent Auto 8.7 % (2-11); Neutrophils Absolute Auto 2.1 x10*3/uL (2.0-8.3); Platelet Count 226 X10*3/uL (160-400); Red Blood Count 4.74 X10*6/uL (4.60-5.80); Red Cell Distribution Width 12.4 % (11.0-16.0); White Blood Count 5.4 X10*3/uL (4.8-10.8)
[2024-06-09 12:13] LABS: Alanine Aminotransferase 22 U/L (0-40); Albumin Level 4.2 g/dL (3.5-5.0); Alkaline Phosphatase 44 U/L (39-117); Anion Gap 11 (12-20); Aspartate Amino Transferase 24 U/L (5-37); Bilirubin Total 0.7 mg/dL (0.0-1.0); Blood Urea Nitrogen 15 mg/dL (9-16); Calcium 9.7 mg/dL (8.4-10.2); Carbon Dioxide 28 mmol/L (22-29); Chloride 106 mmol/L (96-108); Cholesterol 191 mg/dL (<200); Estimated Glomerular Filt Rate > 60; Glucose Fasting 88 mg/dL (60-99); HDL Cholesterol 47 mg/dL (>40); LDL Cholesterol Calculated 123 mg/dL (<100); Potassium 4.2 mmol/L (3.3-5.1); Sodium 141 mmol/L (135-145); Total Protein 7.2 g/dL (6.5-8.0); Triglycerides 109 mg/dL (<150)
== END 2024-06-09 07:31 | disposition home or self-care (01) ==
LOC: HO.WFDLDS 07:30
PROVIDERS: Visit Provider Internal Medicine
DX: Z00.00 Encounter for general adult medical examination without abnormal findings (principal); R97.20 Elevated prostate specific antigen [PSA]; I10 Essential (primary) hypertension; E55.9 Vitamin D deficiency, unspecified
CPT/HCPCS: 36415; 80053; 80061; 85025

== ENCOUNTER 2024-06-13 12:05 | Outpatient (AMB) | payer MEDICARE, SELFPAY ==
--- NOTE | 2024-06-13 12:06 | A.OFFPC_ITS ---
Vital Signs 06/13/24 12:07 Height 5 ft 10 in Weight 205 lb BMI 29.4 BP 130/78 Blood Pressure Location Lt brachial Position Sitting Pulse 53 Pulse Source Pulse Oximeter Pulse Oximetry (%) 98 Oxygen Delivery Method Room Air Intake Visit Reasons: Annual PE Intake Note: Pt is here today for his PE Allergies bee pollen [BEE STINGS] Allergy (Intermediate, Verified 06/13/24 12:07) LIP/MOUTH TINGLING nifedipine [NIFEDIPINE] Allergy (Intermediate, Verified 06/13/24 12:07) FLUSHING-FULL BODY, immediate red ears and hands, swelling hornet venom Allergy (Unknown, Verified 06/13/24 12:07) slight lips and tounge reaction Medication List - Last Reconciled 06/13/24 by Genesis Hunt MD ascorbate calcium (vitamin C) PO aspirin 81 mg PO DAILY cholecalciferol (vitamin D3) (Vitamin D3) 2,000 units PO DAILY epinephrine (EpiPen 2-Jaycob) 0.3 mg (0.3 mL) IM Q4H PRN finasteride 5 mg PO DAILY 90 days lactobacillus combination no.8 (Adult Probiotic) PO lisinopril 10 mg PO DAILY metoprolol tartrate 25 mg PO BID omeprazole 20 mg PO DAILY vitamin B complex (B Complex-Vitamin B12 tablet) 1 tab PO DAILY Tobacco use date assessed: 06/13/24 Fall risk assessment: No Falls in past year Last assessed Fall Risk: 06/13/24 Dental Screening Dental Screen Date: 06/13/24 Did you have a dental visit in the last 12 months?: Yes Did you have a dental problem in the last 6 months where you did not have access to dental care?: No Was dental information given to patient?: Patient has dentist HPI Annual PE HPI Details Pt presents for PE. [facility] Medical History (Updated 06/13/24 @ 12:46 by Genesis Hunt MD) Benign prostatic hyperplasia with lower urinary tract symptoms Vitamin D deficiency Squamous cell carcinoma of skin of [place] region Sjogren's syndrome Blue toe syndrome Mixed connective tissue disease Raynaud disease Lyme disease Microscopic hematuria HTN (hypertension) Surgical History (Updated 06/13/24 @ 12:46 by Genesis Hunt MD) History of esophagogastroduodenoscopy (EGD) H/O colonoscopy No pertinent past surgical history Family History Father HTN (hypertension) Mother HTN (hypertension) Colon cancer Sister Non-Hodgkin lymphoma Social History Housing: House Alcohol intake: current Alcohol intake frequency: a few times a week Patient Tobacco Use Status: Never used Tobacco e-Cigarette/Vaping Use: Never Used Current occupational status: retired Cognitive needs: No Hearing needs: No Vision needs: Yes Questionnaire PHQ-9 Over the last 2 weeks, how often have you been bothered by any of the following problems? 1. Little interest or pleasure in doing things: not at all 2. Feeling down, depressed, or hopeless: not at all 3. Trouble falling or staying asleep, or sleeping too much: not at all 4. Feeling tired or having little energy: not at all 5. Poor appetite or overeating: not at all 6. Feeling bad about yourself - or that you are a failure or have let yourself or your family down: not at all 7. Trouble concentrating on things, such as reading the newspaper or watching television: not at all 8. Moving or speaking so slowly that other people could have noticed. Or the opposite - being so fidgety or restless that you have been moving around a lot more than usual: not at all 9. Thoughts that you would be better off or of hurting yourself in some way: not at all Total score: 0 Depression Screening Interpretation: Negative Depression Screening Done: Yes 29486 - PHQ-9 Billing: Yes Source: Developed by Drs. Nhan Acharya, uSsy Smith, Fer Rosario and colleagues, with an educational kevin from [employer]. Thrive Questionnaire Date Thrive assessed: 06/13/24 I am a: Patient What is your living situation today?: I have a steady place to live Within the past 12 months, did the food you bought not last and you didn't have the money to get more?: Never true Within the past 12 months, did you worry whether your food would run out before you got money to buy more?: Never true Do you have trouble paying for medicines?: No Do you have trouble getting transportation to medical appointments?: No Do you have trouble paying your heating and electricity bill?: No Do you have trouble taking care of your child, family member or friend?: No Do you have trouble with day-to-day activities such as bathing, preparing meals, shopping, managing finances, etc.?: No Are you interested in more education?: No Please select the resources that you would like help with: None Currently or been in a relationship where the following occur: No concerns reported THRIVE Score: 0 AUDIT C Alcohol Use Questionnaire (AUDIT-C) 1. How often do you have a drink containing alcohol?: 2-4 times a month 2. How many drinks containing alcohol do you have on a typical day when you are drinking?: 1 or 2 3. How often do you have six or more drinks on one occasion?: Never Total Score: 2 HEATH-7 AMB Questionnaire HEATH-7 Date HEATH - 7 assessed: 06/13/24 Feeling nervous, anxious, or on edge: 0 = Not at all Not being able to stop or control worryin = Not at all Worrying too much about different things: 0 = Not at all Trouble relaxin = Not at all Being so restless that it is hard to sit still: 0 = Not at all Becoming easily annoyed or irritable: 0 = Not at all Feeling afraid as if something awful might happen: 0 = Not at all Total HEATH-7 score (0-4 normal; 5-9 mild; 10-14 moderate; 15-21 severe): 0 Source: Developed by Drs. Nhan Acharya, Susy Smith, Fer Rosario and colleagues, with an educational kevin from [employer]. Review of Systems Const All systems reviewed & are unremarkable except as noted in HPI and below Reports no additional complaints Eyes Reports no additional complaints ENT Reports no additional complaints Card Reports no additional complaints Resp Reports no additional complaints GI Reports no additional complaints Reports no additional complaints Physical exam (Primary Care) Vital Signs: Last Vital Signs Pulse 53 06/13/24 12:07 BP 144/84 H 06/13/24 12:07 Pulse Ox 98 06/13/24 12:07 Oxygen Delivery Method Room Air 06/13/24 12:07 BMI result Body Mass Index 29.4 Tobacco/Smoking Status: Tobacco use Status Tobacco use date assessed 06/13/24 06/13/24 12:11 Patient Tobacco Use Status Never used Tobacco 06/13/24 12:11 e-Cigarette/Vaping Use Never Used 06/13/24 12:11 PHQ-9: PHQ-9 Score PHQ-9: Total score 0 06/13/24 12:11 Depression Screening Interpretation: Negative Thrive Assessment: Date of Thrive Assessment Date Thrive assessed 06/13/24 06/13/24 12:11 Currently or been in a relationship where the following occur: No concerns reported Const General: no acute distress HENMT Head: Yes normal to inspection General nose exam: Normal external nose present Throat: Yes posterior oropharynx normal Eyes General: appearance normal, both eyes and all related structures Neck Neck: Yes no lymphadenopathy and Yes supple Resp Effort & Inspection: normal respiratory effort Auscultation: clear to auscultation bilaterally Cardio Rhythm: regular rhythm Heart sounds: S1 normal heart sound present and S2 normal heart sound present GI Inspection: Yes normal to inspection Palpation (GI): Soft to palpation Percussion: Yes normal to percussion Auscultation: normal bowel sounds Coding Level of Care Code Est Pt Prev Care >65y(22928) Diagnoses Vitamin D deficiency E55.9 HTN (hypertension) I10 Elevated PSA R97.20 S/P partial colectomy Z90.49 Assessment & Plan Assessment & Plan (1) Vitamin D deficiency: Code(s): E55.9 - Vitamin D deficiency, unspecified Category: Medical Plan: Continue vitamin-D supplement check the level (2) HTN (hypertension): Code(s): I10 - Essential (primary) hypertension Category: Medical Plan: Continue current medications (3) Elevated PSA: Comment: f/u with urology Code(s): R97.20 - Elevated prostate specific antigen [PSA] Category: Medical Plan: Continue finasteride follow-up with Urology (4) S/P partial colectomy: Comment: For recurrent diverticulitis Code(s): Z90.49 - Acquired absence of other specified parts of digestive tract Category: Surgical Plan: Patient is established with GI Orders: Orders Lipid Panel 1 Year E55.9 - Vitamin D deficiency, unspecified, I10 - Essential (primary) hypertension, Z00.00 - Encounter for general adult medical examination without abnormal findings Vitamin D 25-OH Total 1 Year E55.9 - Vitamin D deficiency, unspecified, I10 - Essential (primary) hypertension, Z00.00 - Encounter for general adult medical examination without abnormal findings Vitamin D 25-OH Total Today E55.9 - Vitamin D deficiency, unspecified Comprehensive [place]. Panel Fast 1 Year E55.9 - Vitamin D deficiency, unspecified, I10 - Essential (primary) hypertension, Z00.00 - Encounter for general adult medical examination without abnormal findings Complete Blood Count Auto Diff 1 Year E55.9 - Vitamin D deficiency, unspecified, I10 - Essential (primary) hypertension, Z00.00 - Encounter for general adult medical examination without abnormal findings
[2024-06-13 12:07] VITALS: BP 130/78; PULSE 53; O2SAT 98; BMI 29.4
== END 2024-06-13 12:47 | disposition home or self-care (01) ==
PROVIDERS: PCP Internal Medicine; Visit Provider Internal Medicine
DX: Z00.00 Encounter for general adult medical examination without abnormal findings (principal); I10 Essential (primary) hypertension; E55.9 Vitamin D deficiency, unspecified; R97.20 Elevated prostate specific antigen [PSA]; Z90.49 Acquired absence of other specified parts of digestive tract

== ENCOUNTER → 2024-06-13 12:05 | Outpatient (BNVA) | payer MEDICARE, SELFPAY | PROVIDERS: PCP Internal Medicine; Visit Provider Internal Medicine | DX: E55.9 Vitamin D deficiency, unspecified (principal); I10 Essential (primary) hypertension; R97.20 Elevated prostate specific antigen [PSA]; Z90.49 Acquired absence of other specified parts of digestive tract | CPT/HCPCS: 96127; 99397 ==

== ENCOUNTER 2024-07-27 08:25 | Outpatient (REF) | payer MEDICARE, SELFPAY ==
[2024-07-27 11:02] LABS: MANUAL DIFF FLAG NO
[2024-07-27 11:17] LABS: Basophils Percent Auto 0.5 % (0-2); Eosinophils Absolute Auto 0.4 X10*3/uL (0.0-0.4); Eosinophils Percent Auto 6.6 % (0-4); Hematocrit 43.8 % (42.0-52.0); Hemoglobin 14.5 g/dl (14.0-18.0); Imm Gran Abs Auto 0.01 X10*3/uL (0.00-0.03); Imm Gran Pct Auto 0.2 % (0.0-0.4); Lymphocytes Absolute Auto 2.3 X10*3/uL (1.2-4.9); Lymphocytes Percent Auto 40.5 % (20-40); Mean Corpuscular HGB Conc 33.1 g/dl (31.0-36.0); Mean Corpuscular Hemoglobin 30.4 pg (27.0-33.0); Mean Corpuscular Volume 91.8 fL (80.0-98.0); Mean Platelet Volume 10.1 fL (9.4-12.4); Monocytes Absolute Auto 0.5 X10*3/uL (0.1-1.2); Monocytes Percent Auto 8.5 % (2-11); Neutrophils Absolute Auto 2.5 x10*3/uL (2.0-8.3); Neutrophils Percent Auto 43.7 % (45-73); Platelet Count 218 X10*3/uL (160-400); Red Blood Count 4.77 X10*6/uL (4.60-5.80); Red Cell Distribution Width 12.2 % (11.0-16.0); White Blood Count 5.6 X10*3/uL (4.8-10.8)
[2024-07-27 11:41] LABS: Alanine Aminotransferase 20 U/L (0-40); Albumin Level 4.1 g/dL (3.5-5.0); Anion Gap 8 (12-20); Aspartate Amino Transferase 26 U/L (5-37); Bilirubin Total 0.7 mg/dL (0.0-1.0); Blood Urea Nitrogen 14 mg/dL (9-16); Calcium 8.9 mg/dL (8.4-10.2); Carbon Dioxide 30 mmol/L (22-29); Chloride 105 mmol/L (96-108); Estimated Glomerular Filt Rate > 60; Glucose Fasting 97 mg/dL (60-99); Sodium 139 mmol/L (135-145)
[2024-07-27 11:42] LABS: Alkaline Phosphatase 45 U/L (39-117); Cholesterol 185 mg/dL (<200); HDL Cholesterol 50 mg/dL (>40); LDL Cholesterol Calculated 116 mg/dL (<100); Triglycerides 98 mg/dL (<150)
[2024-07-27 11:54] LABS: Prostate Specific Antigen 1.57 ng/mL (<0.05-4.0)
[2024-07-27 12:01] LABS: Vitamin D 25-OH Total 66.4 ng/mL (>30)
== END 2024-07-27 08:26 | disposition home or self-care (01) ==
LOC: HO.WFDLDS 08:25
PROVIDERS: Referring Provider Urology; Visit Provider Internal Medicine
DX: Z00.00 Encounter for general adult medical examination without abnormal findings (principal); R97.20 Elevated prostate specific antigen [PSA]; I10 Essential (primary) hypertension; E55.9 Vitamin D deficiency, unspecified; Z12.5 Encounter for screening for malignant neoplasm of prostate
CPT/HCPCS: 36415; 80053; 80061; 82306; 84153; 85025

== ENCOUNTER 2024-08-03 10:38 | Outpatient (AMB) | payer MEDICARE, SELFPAY ==
--- NOTE | 2024-08-03 10:43 | A.OFFVIS_ITS ---
Intake Visit Reasons: 1Y PSA(set) Intake Note: Patient is Present for Follow Up PSA Urology Medication: Finasteride Antibiotic Allergies: None Blood Thinners: Aspirin LABS: 07/27/24 -PSA- 1.57 Last PVR:0ML Bottom Cager Required: No Accompanied by: Self / Same As Patient Allergies bee pollen [BEE STINGS] Allergy (Intermediate, Verified 08/03/24 10:45) LIP/MOUTH TINGLING nifedipine [NIFEDIPINE] Allergy (Intermediate, Verified 08/03/24 10:45) FLUSHING-FULL BODY, immediate red ears and hands, swelling hornet venom Allergy (Unknown, Verified 08/03/24 10:45) slight lips and tounge reaction HPI Comments Details: Xavi is a pleasant male. He is a patient of Dr. Hunt. He is seen for the following urologic issues - lower urinary tract symptoms Three-month follow-up Taking finasteride 5 times a week Previous discussion regarding prostate procedures such as GreenLight laser and UroLift PSA remains stable at 1.6 Would check PVR in 6 months given some concern regarding bladder performance Lower Urinary Tract Symptoms: Continuing with use of finasteride Current visit is for further symptom evaluation of, lower urinary tract symptoms, predominate obstructive symptoms. Current treatment includes observation. Prostate Symptom Score Moderate (9-19), Bother 3. Symptoms include incomplete emptying, weak stream, nocturia (>2), and are progressing. PSA - 01/31 2.2, 08/04 1.9, 08/05 1.9, 04/05 1.6, 08/06 1.6 Prior Prostate Score unknown. Testing at next visit will include bladder scan [facility] Medical History Benign prostatic hyperplasia with lower urinary tract symptoms Vitamin D deficiency Squamous cell carcinoma of skin of [place] region Sjogren's syndrome Blue toe syndrome Mixed connective tissue disease Raynaud disease Lyme disease Microscopic hematuria HTN (hypertension) Surgical History History of esophagogastroduodenoscopy (EGD) H/O colonoscopy No pertinent past surgical history Family History Father HTN (hypertension) Mother HTN (hypertension) Colon cancer Sister Non-Hodgkin lymphoma Social History Housing: House Alcohol intake: current Alcohol intake frequency: a few times a week Patient Tobacco Use Status: Never used Tobacco e-Cigarette/Vaping Use: Never Used Current occupational status: retired Cognitive needs: No Hearing needs: No Vision needs: Yes Review of Systems Const Denies chills and Denies fever(s) Card Reports no additional complaints and Denies syncope Resp Denies cough GI Denies abdominal pain and Denies heartburn Reports as per HPI and Denies change in libido Neuro Denies syncope Psych Denies change in libido Endo Denies change in libido Physical Exam Const General: cooperative, healthy appearing, comfortable and no acute distress Orientation/consciousness: patient oriented x3 HEENT Face and sinus: Yes normal facial exam Mouth: moist mucous membranes Neck Neck: Yes normal visual inspection, Yes full ROM and Yes trachea midline Chest Chest palpation & inspection: normal inspection of the chest Resp Effort & Inspection: normal respiratory effort, able to speak in complete sentences and no respiratory distress GI Inspection: Yes normal to inspection Back/Spine/Pelvis Cervical Spine: normal cervical lordosis Thoracic/Lumbar Spine: thoracic and lumbar spine normal to inspection Skin General skin exam: no rashes or lesions noted Neuro General: patient oriented x3, gait normal, tone normal and moves all extremities Extrem General: Yes normal to inspection and Yes capillary refill normal Assessment & Plan Assessment & Plan (1) Elevated PSA: Comment: f/u with urology Code(s): R97.20 - Elevated prostate specific antigen [PSA] Category: Medical (2) BPH w urinary obs/LUTS: Code(s): N40.1 - Benign prostatic hyperplasia with lower urinary tract symptoms; N13.8 - Other obstructive and reflux uropathy Category: Medical (3) Nocturia: Code(s): R35.1 - Nocturia Category: Medical Plan Six-month follow-up PVR Patient Instructions: Imaging studies, laboratory and physical exam results were discussed and reviewed in detail. No major barriers to patient understanding were identified. An opportunity to ask questions regarding the treatment plan was provided. All questions were answered. The patient expressed understanding and agreement with the above treatment plan. The patient is aware they should contact our office by phone for worsening of their current condition or the appearance of new urologic symptoms. Compliance is encouraged with any medications and followup testing that is ordered. It is a privilege to participate in the urologic care of your patient. If you have any questions or concerns regarding treatment for the above conditions, or other urologic issues, please do not hesitate to contact me. The office telephone contact is [phone]. This note is constructed using voice recognition software. While every effort has been made to ensure accuracy store operations associate errors may have been included. Yours sincerely, Dr Floyd Duncan MD, [facility] - Urology Providers of Expert, Compassionate Care for the Genitourinary System Coding Level of Care Code Est Pt Level 3 (87379) Diagnoses Elevated PSA R97.20 BPH w urinary obs/LUTS N40.1; N13.8 Nocturia R35.1
== END 2024-08-03 11:38 | disposition home or self-care (01) ==
PROVIDERS: PCP Internal Medicine; Visit Provider Urology
DX: R97.20 Elevated prostate specific antigen [PSA] (principal); N40.1 Benign prostatic hyperplasia with lower urinary tract symptoms; N13.8 Other obstructive and reflux uropathy; R35.1 Nocturia
CPT/HCPCS: 99213

== ENCOUNTER → 2024-08-03 10:38 | Outpatient (BNVA) | payer MEDICARE, SELFPAY | PROVIDERS: PCP Internal Medicine; Visit Provider Urology | DX: N40.1 Benign prostatic hyperplasia with lower urinary tract symptoms (principal); N13.8 Other obstructive and reflux uropathy; R35.1 Nocturia; R97.20 Elevated prostate specific antigen [PSA] | CPT/HCPCS: 99212 ==

== ENCOUNTER 2025-02-01 11:40 | Outpatient (AMB) | payer MEDICARE, SELFPAY ==
--- NOTE | 2025-02-01 11:49 | A.OFFVIS_ITS ---
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 He is a patient of Dr. Hunt. He is seen for the following urologic issues - lower urinary tract symptoms Six-month follow-up Taking finasteride 5 times a week Previous discussion regarding prostate procedures such as GreenLight laser and UroLift Continued improvement in PVR Continued bladder performance improvement Adequate stream Twelve month follow-up Lower Urinary Tract Symptoms: Continuing with use of finasteride Current visit is for further symptom evaluation of, lower urinary tract symptoms, predominate obstructive symptoms. Current treatment includes observation. Prostate Symptom Score Moderate (9-19), Bother 3. Symptoms include incomplete emptying, weak stream, nocturia (>2), and are progressing. PSA - 01/31 2.2, 08/04 1.9, 08/05 1.9, 04/05 1.6, 08/06 1.6 Prior Prostate Score unknown. 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 Sjogren's syndrome Blue toe syndrome Mixed connective tissue disease Raynaud disease Lyme disease Microscopic hematuria HTN (hypertension) Surgical History History of esophagogastroduodenoscopy (EGD) H/O colonoscopy No pertinent past surgical history Family History Father HTN (hypertension) Mother HTN (hypertension) Colon cancer Sister Non-Hodgkin lymphoma Social History (Reviewed 08/03/24 @ 10:45 by OBDULIO Wheat Housing: House Alcohol intake: current Alcohol intake frequency: a few times a week Patient Tobacco Use Status: Never used Tobacco e-Cigarette/Vaping Use: Never Used Current occupational status: retired Cognitive needs: No Hearing needs: No Vision needs: Yes Review of Systems Const Denies chills and Denies fever(s) Card Reports no additional complaints and Denies syncope Resp Denies cough GI Denies abdominal pain and Denies heartburn Reports as per HPI and Denies change in libido Neuro Denies syncope Psych Denies change in libido Endo Denies change in libido Physical Exam Const General: cooperative, healthy appearing, comfortable and no acute distress Orientation/consciousness: patient oriented x3 HEENT Face and sinus: Yes normal facial exam Mouth: moist mucous membranes Neck Neck: Yes normal visual inspection, Yes full ROM and Yes trachea midline Chest Chest palpation & inspection: normal inspection of the chest Resp Effort & Inspection: normal respiratory effort, able to speak in complete sentences and no respiratory distress GI Inspection: Yes normal to inspection Back/Spine/Pelvis Cervical Spine: normal cervical lordosis Thoracic/Lumbar Spine: thoracic and lumbar spine normal to inspection Skin General skin exam: no rashes or lesions noted Neuro General: patient oriented x3, gait normal, tone normal and moves all extremities Extrem General: Yes normal to inspection and Yes capillary refill normal Office Procedures Post Void Residual Post Residual Void Post Void Residual (PVR): 0 [id number] Void Residual by ultrasound Results AMB Urinalysis, Automated UA Leukoctes 0 Sergey/uL Last Edit by SHAWN Arango on 02/01/25 12:12 UA Nitrite Negative Last Edit by SHAWN Arango on 02/01/25 12:12 UA Urobilinogen 3.5 mg/dL Last Edit by SHAWN Arango on 02/01/25 12:1 2 UA Protein 0 mg/dL Last Edit by SHAWN Arango on 02/01/25 12:12 UA pH 6.5 Last Edit by SHAWN Arango on 02/01/25 12:12 UA Blood 10 Vitaliy/uL Last Edit by SHAWN Arango on 02/01/25 12:12 UA Specific [place] 1.010 Last Edit by SHAWN Arango on 02/01/25 12: 12 UA Ketone Negative Last Edit by SHAWN Arango on 02/01/25 12:12 UA Bilirubin 0 mg/dL Last Edit by SHAWN Arango on 02/01/25 12:12 UA Glucose 0 mg/dL Last Edit by SHAWN Arango on 02/01/25 12:12 Results Reviewed Results Reviewed: Laboratory Last Values Urine pH (Auto) 6.5 02/01/25 12:04 Specific [place] (Auto) 1.010 02/01/25 12:04 Urine Protein (Auto) 0 mg/dL 02/01/25 12:04 Glucose (UA)(Auto) 0 mg/dL 02/01/25 12:04 Urine Ketones (Auto) Negative 02/01/25 12:04 Urine Blood (Auto) 10 Vitaliy/uL 02/01/25 12:04 Urine Nitrite (Auto) Negative 02/01/25 12:04 Urine Bilirubin (Auto) 0 mg/dL 02/01/25 12:04 Urine Urobilinogen (Auto) 3.5 mg/dL 02/01/25 12:04 Leukocyte Esterase (Auto) 0 Sergey/uL 02/01/25 12:04 Assessment & Plan Assessment & Plan (1) BPH w urinary obs/LUTS: Code(s): N40.1 - Benign prostatic hyperplasia with lower urinary tract symptoms; N13.8 - Other obstructive and reflux uropathy Category: Medical (2) Elevated PSA: Comment: f/u with urology Code(s): R97.20 - Elevated prostate specific antigen [PSA] Category: Medical (3) Nocturia: Code(s): R35.1 - Nocturia Category: Medical Plan 12 month follow-up PSA Orders: Orders Prostate Specific Antigen 12 Months N13.8 - Other obstructive and reflux uropathy, N40.1 - Benign prostatic hyperplasia with lower urinary tract symptoms AMB Urinalysis Automated Today Z13.9 - Encounter for screening, unspecified Patient Instructions: This note is constructed using voice recognition software. While every effort has been made to ensure accuracy marble coper errors may have been included. Imaging studies, laboratory and physical exam results were discussed and reviewed in detail. No major barriers to patient understanding were identified. An opportunity to ask questions regarding the treatment plan was provided. All questions were answered. The patient expressed understanding and agreement with the above treatment plan. The patient is aware they should contact our office by phone for worsening of their current condition or the appearance of new urologic symptoms. Compliance is encouraged with any medications and followup testing that is ordered. It is a privilege to participate in the urologic care of your patient. If you have any questions or concerns regarding treatment for the above conditions, or other urologic issues, please do not hesitate to contact me. The office telephone contact is [phone]. Sincerely, Dr Floyd Duncan MD, [facility] - Urology Compassionate Specialist Care for the Genitourinary System Coding Level of Care Code Est Pt Level 3 (41409) Diagnoses BPH w urinary obs/LUTS N40.1; N13.8 Elevated PSA R97.20 Nocturia R35.1 CPT Codes Post Residual Void - PVR CPT Code: 74909-Lyin Void Residual by ultrasound ([id number])
== END 2025-02-01 12:28 | disposition home or self-care (01) ==
LOC: HO.HUSH 11:41
PROVIDERS: PCP Internal Medicine; Visit Provider Urology
DX: N40.1 Benign prostatic hyperplasia with lower urinary tract symptoms (principal); N13.8 Other obstructive and reflux uropathy; R97.20 Elevated prostate specific antigen [PSA]; R35.1 Nocturia; Z13.9 Encounter for screening, unspecified
CPT/HCPCS: 99213

== ENCOUNTER → 2025-02-01 11:40 | Outpatient (BNVA) | payer MEDICARE, SELFPAY | PROVIDERS: PCP Internal Medicine; Visit Provider Urology | DX: N40.1 Benign prostatic hyperplasia with lower urinary tract symptoms (principal); N13.8 Other obstructive and reflux uropathy; R35.1 Nocturia; R97.20 Elevated prostate specific antigen [PSA] | CPT/HCPCS: 51798; 81003; 99212 ==